=== PATIENT | male | born 1960 | race Caucasian/White ===

== ENCOUNTER 2020-09-01 18:39 | Emergency (ER) | payer MEDICAID ==
[~2020-09-01] VITALS: Ht 180.3 cm; Wt 69.9 kg
[2020-09-01 19:08] VITALS: BP 129/87
--- NOTE | 2020-09-01 19:35 | NUR ---
NOT IN LOBBY
--- NOTE | 2020-09-01 19:53 | NUR ---
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
--- NOTE | 2020-09-01 20:08 | NUR ---
NOT IN LOBBY
== END 2020-09-01 20:12 | disposition left against medical advice (07) ==
LOC: ED 18:59
DX: S60.551A Superficial foreign body of right hand, initial encounter (principal); Z53.21 Procedure and treatment not carried out due to patient leaving prior to being seen by health care provider; W45.8XXA Other foreign body or object entering through skin, initial encounter; Y93.89 Activity, other specified; Y92.89 Other specified places as the place of occurrence of the external cause; Y99.8 Other external cause status

== ENCOUNTER 2021-03-17 19:43 | Emergency (ER) | payer MEDICAID ==
[~2021-03-17] VITALS: Ht 180.3 cm; Wt 73.7 kg
[2021-03-17 19:46] VITALS: BP 125/74
[2021-03-17] MEDS ORDERED: ACETAMINOPHEN 500 MG TABLET PO ONE (21:00)
[2021-03-17] MEDS ORDERED: CYCLOBENZAPRINE 10 MG TABLET PO ONE (21:00)
[2021-03-17] MEDS ORDERED: KETOROLAC 30 MG/1 ML IM ONE (21:00)
--- NOTE | 2021-03-17 21:10 | NUR ---
PT MEDICATED PER MD ORDER ON EMAR.
--- NOTE | 2021-03-17 21:13 | NUR ---
PT AMBULATED TO ROOM WITHOUT ISSUE OR PAIN.
--- NOTE | 2021-03-17 21:32 | NUR ---
F/U AND D/C INSTRUCTIONS AND PRESCRIPTION GIVEN TO PT AND HE V/U. PT AMBULATED OUT TO DISCHARGE.
== END 2021-03-17 21:34 | disposition home or self-care (01) ==
LOC: ED 21:00
DX: S39.012A Strain of muscle, fascia and tendon of lower back, initial encounter (principal); Z59.0 Homelessness; X58.XXXA Exposure to other specified factors, initial encounter; Y93.89 Activity, other specified; Y92.89 Other specified places as the place of occurrence of the external cause; Y99.8 Other external cause status
CPT/HCPCS: 72110; 96372; 99283; J1885